=== PATIENT | female | born 1955 | race Caucasian/White ===

== ENCOUNTER 2021-02-10 10:29 | Emergency (ER) | payer BC ==
[~2021-02-10] VITALS: Ht 167.6 cm; Wt 63.5 kg
[2021-02-10] MEDS: ACETAMINOPHEN 325 MG TABLET PO ONE (11:06)
[2021-02-10] MEDS ORDERED: HYDR-4209 PO (11:07)
[2021-02-10] MEDS ORDERED: ACETAMINOPHEN 325 MG TABLET ONE (11:10)
--- NOTE | 2021-02-10 12:29 | NUR ---
Gave pt RX and d/c instructions, pt verbalized understanding.
== END 2021-02-10 12:31 | disposition home or self-care (01) ==
LOC: ER 10:29
DX: S52.502A Unspecified fracture of the lower end of left radius, initial encounter for closed fracture (principal); W01.0XXA Fall on same level from slipping, tripping and stumbling without subsequent striking against object, initial encounter; Y93.02 Activity, running; Y92.480 Sidewalk as the place of occurrence of the external cause; Y99.8 Other external cause status; M19.032 Primary osteoarthritis, left wrist; I10 Essential (primary) hypertension
CPT/HCPCS: 73080; 73090; 73110; 73130; A4663